=== PATIENT | male | born 1960 | race Caucasian/White ===

== ENCOUNTER → 2017-01-25 | Outpatient (CLI) | payer OTHER | LOC: FLAB 09:38 → FIMAGING 09:48 | PROVIDERS: ATTEND Physician Assistant Surgical | DX: Z09 Encounter for follow-up examination after completed treatment for conditions other than malignant neoplasm (principal); Z98.1 Arthrodesis status ==

== ENCOUNTER → 2018-07-18 | Outpatient (CLI) | payer OTHER | LOC: FIMAGING 07:47 | PROVIDERS: ATTEND Neurological Surgery | DX: M43.16 Spondylolisthesis, lumbar region (principal); Z98.1 Arthrodesis status ==

== ENCOUNTER 2018-12-05 06:32 | Day surgery (SDC) | payer OTHER ==
[2018-12-05] MEDS ORDERED: FAMOTIDINE 20 MG TAB PO ONE (06:35)
[2018-12-05] MEDS ORDERED: diphenhydrAMINE 25 MG CAP PO ONE ×2 (06:35→06:44)
[2018-12-05] MEDS ORDERED: NS 1,000 ML IV ONE (06:35)
[2018-12-05] MEDS ORDERED: DIAZEPAM 5 MG TAB PO ONE (06:35)
[2018-12-05] MEDS ORDERED: ASPIRIN EC 325 MG TAB PO ONE ×2 (06:35→06:44)
[2018-12-05] MEDS ORDERED: FAMOTIDINE 20 MG TAB ONE (06:44)
[2018-12-05] MEDS ORDERED: DIAZEPAM 5 MG TAB ONE (06:44)
[2018-12-05 07:05] LABS: PLATELET COUNT 219 10^3/uL (150-400)
[2018-12-05 07:17] LABS: INR 1.03 (0.83-1.16); PROTIME(PATIENT) 13.1 SEC (12.0-15.0)
[2018-12-05] MEDS ORDERED: fentaNYL 100 MCG/2 ML INJ ONE (07:31)
[2018-12-05] MEDS ORDERED: LIDOCAINE 1% 300 MG/30 ML SDV ONE (07:31)
[2018-12-05] MEDS ORDERED: MIDAZOLAM 2 MG/2 ML VIAL ONE (07:32)
[2018-12-05] MEDS ORDERED: HEPARIN 10,000 UNIT/10 ML MDV (1,000 UNIT/ML) ONE (07:32)
[2018-12-05] MEDS ORDERED: IOPAMIDOL (ISOVUE-370) 150 ML BTL IV ONE (07:32)
[2018-12-05] MEDS ORDERED: VERAPAMIL 5 MG/2 ML VIAL ONE (07:32)
--- NOTE | 2018-12-05 08:23 | PDHPUP ---
History & Physical Update H&P update statement: This history and physical update is based on an assessment of the patient which was completed after admission or registration (within 24 hours), but prior to the surgery/procedure. H&P update: H&P reviewed & patient examined, no change in patient's condition since H&P completed
--- NOTE | 2018-12-05 08:24 | PDPROPOC ---
Sedation Plan of Care Sedation Plan of Care: vital signs stable, mental status noted, patient educated of risks, benefits, alternatives, patient can tolerate sedation ASA Classification: ASA 2 Planned drugs: fentanyl, midazolam Mallampati Score: Class 1 Mallampati Reference Image: Patient passed 3-3-2 rule?: Yes
--- NOTE | 2018-12-05 08:56 | PDDXCAT ---
Diagnostic Cath Note - . Date: 12/05/18 [facility] Specialist: Familia Indication: Class I/II angina, intolerance to med therapy or failure to respond High-risk criteria on non-invasive testing: high-risk treadmill score (score<=- 11) - Procedure Access: right wrist Procedure: left heart catheterization, coronary angiography, left ventriculogram - Materials Left Heart Cath size: 5F Left Heart Cath materials: pigtail, other ([place] 4) - Findings-Left Heart Catheterization LM: Normal LAD: Normal LCX: Normal RCA: Dominant: Normal EDP: 13 mm of mercury LVEF: 70% Wall motion: Normal Complications: None Estimated blood loss: <50ml Closure method: TR Band Assessment: Angiographically normal coronary arteries. Normal LV systolic function with normal filling pressures. Plan: Continue clinical follow-up.
--- NOTE | 2018-12-06 10:26 | CPEKG ---
Test Reason : OPEN Blood Pressure : / mmHG Vent. Rate : 078 BPM Atrial Rate : 078 BPM P-R Int : 161 ms QRS Dur : 102 ms QT Int : 379 ms P-R-T Axes : 082 161 061 degrees QTc Int : 432 ms Sinus rhythm Minimal ST elevation, anterior leads Confirmed by Horace Jennings ([id number]) on 12/06/2018 10:25:46 AM Referred By: Jose L Barbosa Confirmed By:Horace Jennings
== END 2018-12-05 14:05 | disposition home or self-care (01) ==
LOC: FCATH 06:32
PROVIDERS: ATTEND Internal Medicine Interventional Cardiology
PROC: B2151ZZ Fluoroscopy of Left Heart using Low Osmolar Contrast (ICD-10-PCS; principal; 2018-12-05)
PROC: B2111ZZ Fluoroscopy of Multiple Coronary Arteries using Low Osmolar Contrast (ICD-10-PCS; principal; 2018-12-05)
PROC: 4A023N7 Measurement of Cardiac Sampling and Pressure, Left Heart, Percutaneous Approach (ICD-10-PCS; principal; 2018-12-05)
DX: I95.9 Hypotension, unspecified (principal); I20.9 Angina pectoris, unspecified; R55 Syncope and collapse
CPT/HCPCS: 93005; 93458; C1769; J1644; J2250; J3010; Q9967